=== PATIENT | male | born 1965 | race African-American/Black ===

== ENCOUNTER 2019-06-08 17:14 | Emergency (ER) | payer OTHER ==
[2019-06-08 17:37] VITALS: BMI 29.0
[2019-06-08] MEDS ORDERED: ACETAMINOPHEN 325 MG TABLET (FP) PO ONE (17:38)
--- NOTE | 2019-06-08 17:43 | PDOC ---
History of Present Illness - General Chief Complaint: Cold Symptoms Stated Complaint: COLD SYMPTOMS Time Seen by Provider: 06/08/19 17:43 History Source: Patient - History of Present Illness Initial Comments: 06/08/19 19:11 54-year-old male brought in complaining of fever/chills/cough and congestion for 1 day. denies NVD, abdominal pain PMHX: hypertension 06/08/19 22:20 Past History - Past Medical History Allergies/Adverse Reactions: Allergies Allergy/AdvReac Type Severity Reaction Status Date / Time No Known Allergies Allergy Verified 06/08/19 17:37 Home Medications: Ambulatory Orders Acetaminophen [Tylenol -] 500 mg PO Q6H PRN #20 tablet 06/08/19 Azithromycin [Zithromax 250mg Tablets -] 250 mg PO UTDICT #6 tab 06/08/19 Dextromethorphan Hb/Doxylamine [Robitussin Nighttime Cough Dm] 30 ml PO QID #1 bottle 06/08/19 Ibuprofen 400 mg PO QID PRN #20 tablet 06/08/19 - Psycho Social/Smoking Cessation Hx Smoking History: Never smoked Have you smoked in the past 12 months: No Information on smoking cessation initiated: No Hx Alcohol Use: No Drug/Substance Use Hx: No Review of Systems - Review of Systems Able to Perform ROS?: Yes Is the patient limited Bangl[place]hi proficient: No Constitutional: Yes: Fever Respiratory: Yes: Cough ABD/GI: No: Symptoms Reported, See HPI, Abdominal Distended, Abd. Pain w/ defecation, Blood Streaked Bowels, Constipated, Diarrhea, Difficulty Swallowing , Nausea, Poor Appetite, Poor Fluid Intake, Rectal Bleeding, Vomiting, Indigestion, Abdominal cramping, Tarry Stools, Other *Physical Exam - Vital Signs Last Vital Signs Temp Pulse Resp BP Pulse Ox 102.8 F H 105 H 16 149/96 96 06/08/19 17:34 06/08/19 17:34 06/08/19 17:34 06/08/19 17:34 06/08/19 17:34 - Physical Exam General Appearance: Yes: Appropriately Dressed HEENT: positive: Normal ENT Inspection Respiratory/Chest: positive: Normal Breath Sounds, Rhonchi Cardiovascular: positive: Tachycardia Gastrointestinal/Abdominal: positive: Normal Bowel Sounds, Soft. negative: Tender Musculoskeletal: positive: Normal Inspection Extremity: positive: Normal Capillary Refill, Normal Inspection, Normal Range of Motion Integumentary: positive: Normal Color, Dry, Warm Neurologic: positive: Fully Oriented, Alert, Normal Mood/Affect ED Treatment Course - Medications Given in the ED: ED Medications Discontinued Medications Generic Name Dose Route Start Last Admin Trade Name Freq PRN Reason Stop Dose Admin Acetaminophen 650 mg 06/08/19 17:38 06/08/19 17:38 Tylenol - PO 06/08/19 17:39 650 mg NOW ONE Administration ED Progress Note - Progress Note Progress Note: 06/08/19 22:19 A: bronchitis P: InfluenzA: negative chest xrau no focal consolidation Azithromycin robitussin Discharge - Discharge Information Problems reviewed: Yes Clinical Impression/Diagnosis: Bronchitis Condition: Stable Disposition: HOME - Additional Discharge Information Prescriptions: Acetaminophen [Tylenol -] 500 mg PO Q6H PRN #20 tablet PRN Reason: Fever Azithromycin [Zithromax 250mg Tablets -] 250 mg PO UTDICT #6 tab Dextromethorphan Hb/Doxylamine [Robitussin Nighttime Cough Dm] 30 ml PO QID #1 bottle Ibuprofen 400 mg PO QID PRN #20 tablet PRN Reason: Pain - Follow up/Referral Referrals: ON STAFF,NOT [Primary Care Provider] - - Patient Discharge Instructions Patient Printed Discharge Instructions: DI for Acute Bronchitis Additional Instructions: 1. Your xray does not show pneumonia. You are being treated for bronchitis. 2. Use the robitussion and take azithromycin as prescribed 4. Return for any worsening symptoms, especially difficulty breathing, tongue or lip swelling, or fever. - Post Discharge Activity Work/Back to School Note: Back to Work
[2019-06-08] MEDS ORDERED: IBUPROFEN 600 MG TABLET (FP) PO ONE ×2 (18:23→18:36)
[2019-06-08 19:26] VITALS: BP 139/92; PULSE 88; TEMP 99.4
== END 2019-06-08 19:33 | disposition home or self-care (01) ==
LOC: JERFT 17:14
DX: J40 Bronchitis, not specified as acute or chronic (principal)
CPT/HCPCS: 71046-TC-FY; 87804; 99282-25

== ENCOUNTER 2022-02-11 11:53 | Observation (INO) | payer OTHER ==
[2022-02-11 13:09] LABS: BASO % 0.3 % (0-2.0); EOS % 0.9 % (0-4.5); HEMATOCRIT 42.6 % (35.4-49); HEMOGLOBIN 13.7 GM/dL (11.7-16.9); LYMPH % 23.3 % (8-40); MCH 27.3 pg (25.7-33.7); MCHC 32.2 g/dl (32.0-35.9); MEAN CELL VOLUME 84.9 fl (80-96); MEAN PLT VOLUME 7.9 fl (7.5-11.1); MONO % 8.1 % (3.8-10.2); NEUT % 67.4 % (42.8-82.8); PLATELET COUNT 260 10^3/uL (134-434); RBC 5.01 M/mm3 (4.00-5.60); WHITE BLOOD COUNT 6.5 K/mm3 (4.0-10.0)
[2022-02-11 13:16] LABS: PROTHROMBIN TIME (PATIENT) 11.5 SEC (9.7-13.0)
[2022-02-11 13:18] LABS: ACTIVATED PTT 31.5 SECONDS (25.2-36.5)
[2022-02-11 13:38] LABS: ALBUMIN 3.7 g/dl (3.4-5.0); BLOOD UREA NITROGEN 17.2 mg/dL (7-18)
[2022-02-11 13:41] LABS: CREATININE 0.9 mg/dL (0.55-1.3)
[2022-02-11 13:43] LABS: BILIRUBIN,TOTAL 0.7 mg/dL (0.2-1); TOT PROT 7.4 g/dl (6.4-8.2)
[2022-02-11] MEDS ORDERED: ASPIRIN 81 MG CHEWABLE TABLETS PO ONE (17:12)
[2022-02-11] MEDS ORDERED: ASPIRIN 81 MG CHEWABLE TABLETS ONE (17:30)
[2022-02-11] MEDS ORDERED: amLODIPine BESYLATE 5 MG TABLET (FP) PO ONE (21:11)
[2022-02-11 22:32] VITALS: BMI 32.7
[2022-02-12 08:37] LABS: BASO % 0.5 % (0-2.0); EOS % 0.8 % (0-4.5); HEMATOCRIT 42.8 % (35.4-49); HEMOGLOBIN 14.1 GM/dL (11.7-16.9); LYMPH % 27.3 % (8-40); MCH 28.1 pg (25.7-33.7); MCHC 32.8 g/dl (32.0-35.9); MEAN CELL VOLUME 85.4 fl (80-96); MEAN PLT VOLUME 7.5 fl (7.5-11.1); MONO % 7.8 % (3.8-10.2); NEUT % 63.6 % (42.8-82.8); PLATELET COUNT 231 10^3/uL (134-434); RBC 5.01 M/mm3 (4.00-5.60); WHITE BLOOD COUNT 6.4 K/mm3 (4.0-10.0)
[2022-02-12 08:55] VITALS: RESP 18
[2022-02-12 08:55] LABS: ALBUMIN 3.6 g/dl (3.4-5.0); CALCIUM 8.7 mg/dL (8.5-10.1); MAGNESIUM 2.2 mg/dL (1.8-2.4)
[2022-02-12 08:57] LABS: BLOOD UREA NITROGEN 12.8 mg/dL (7-18)
[2022-02-12 08:58] LABS: PHOSPHOROUS 2.8 mg/dL (2.5-4.9)
[2022-02-12 08:59] LABS: CREATININE 0.8 mg/dL (0.55-1.3)
[2022-02-12 09:00] LABS: BILIRUBIN,TOTAL 0.6 mg/dL (0.2-1); TOT PROT 7.1 g/dl (6.4-8.2)
[2022-02-12] MEDS ORDERED: LISINOPRIL 20 MG TABLET PO SCH ×2 (11:15→12:15)
[2022-02-12] MEDS ORDERED: HYDROCHLOROTHIAZIDE 25 MG TABLET (FP) PO SCH (11:15)
[2022-02-12] MEDS ORDERED: ATORVASTATIN CA 40 MG TABLET (FP) PO SCH (11:17)
[2022-02-12] MEDS ORDERED: ENOXAPARIN NA (PORCINE) 40 MG/0.4 ML DISP.SYRIN SQ SCH (11:30)
[2022-02-12] MEDS ORDERED: ASPIRIN 81 MG CHEWABLE TABLETS PO SCH (11:30)
[2022-02-12] MEDS ORDERED: HYDROCHLOROTHIAZIDE 12.5 MG CAPSULE (FP) PO SCH (12:15)
[2022-02-12 13:26] VITALS: BP 155/94; PULSE 59; TEMP 98.4
[2022-02-13] MEDS ORDERED: amLODIPine BESYLATE 10 MG TABLET (FP) PO SCH (10:00)
== END 2022-02-12 18:38 | disposition home or self-care (01) ==
LOC: JER 11:53 → SUATTDRO 11:53 → JERBED 17:14 → J4S 20:18
PROVIDERS: ADMIT Internal Medicine; ATTEND Internal Medicine
PROC: 3E023GC Introduction of Other Therapeutic Substance into Muscle, Percutaneous Approach (ICD-10-PCS; principal; 2022-02-11)
DX: I16.0 Hypertensive urgency (principal); J40 Bronchitis, not specified as acute or chronic; E66.8 Other obesity; Z68.32 Body mass index [BMI] 32.0-32.9, adult
CPT/HCPCS: 0241U-QW; 36415; 70450-TC; 70551-TC; 71045-TC-FY; 80053; 80061; 82607; 82962; 83036; 83735; 84100; 84443; 84484; 85025; 85610; 85730; 93005; 93010; 99285-25; G0378